=== PATIENT | female | born 1955 | race Caucasian/White ===

== ENCOUNTER 2017-08-26 14:11 | Outpatient (CLI) | payer OTHER | END 2017-08-26 14:12 | disposition home or self-care (01) | LOC: BICRAD 14:11 | PROVIDERS: ATTEND Internal Medicine Rheumatology | DX: M17.0 Bilateral primary osteoarthritis of knee (principal) ==

== ENCOUNTER 2017-09-03 13:25 | Outpatient (CLI) | payer OTHER ==
--- NOTE | 2017-09-03 14:10 | ULT ---
ULTRASOUND WITH DOPPLER DUPLEX VENOUS LOWER EXTREMITY BILATERAL CPT: 63277 ICD-10-PCS: B54D HISTORY: Bilateral lower extremity edema. TECHNIQUE: Color flow Doppler, spectral waveform analysis of pulsed Doppler, and pina-scale imaging with vicente bibi and augmentation, were used to evaluate the bilateral common femoral, femoral, popliteal, core cleaner ior tibial, and superficial femoral, veins; and the proximal portions of the profunda femoral and gre ater saphenous, veins. FINDINGS: Appropriate compressibility and flow within the imaged deep vein system of each lower extremity. IMPRESSION: No deep vein thrombosis of the visualized bilateral lower extremities. POS: [facility]
== END 2017-09-03 13:26 | disposition home or self-care (01) ==
LOC: ULT 13:25
PROVIDERS: ATTEND Family Medicine
DX: M79.89 Other specified soft tissue disorders (principal)
CPT/HCPCS: 93970

== ENCOUNTER 2017-09-13 10:45 | Outpatient (CLI) | payer OTHER | END 2017-09-13 10:46 | disposition home or self-care (01) | LOC: DTY/OP 10:45 | PROVIDERS: ATTEND Surgery | DX: E78.5 Hyperlipidemia, unspecified (principal); G47.30 Sleep apnea, unspecified; I10 Essential (primary) hypertension | CPT/HCPCS: 97802 ==

== ENCOUNTER 2017-10-11 11:15 | Inpatient (IN) | payer OTHER ==
[2017-10-21] MEDS ORDERED: Heparin 5,000 UNITS/ML VIAL ONE (08:11)
[2017-10-21] MEDS ORDERED: CEFAZOLIN/Water 2 GM/20 ML SYRINGE ONE (08:11)
[2017-10-21] MEDS ORDERED: Bupivacaine/Epinephrine 0.25% 30 ML VIAL ONE (09:53)
--- NOTE | 2017-10-21 10:14 | RAD ---
PA AND LATERAL CHEST: HISTORY: A 62-year-old female for preoperative evaluation. FINDINGS: Heart size is normal. Lungs are clear. No confluent pneumonia, overt edema, or pleural effusion. IMPRESSION: No acute intrathoracic disease. Minimal atherosclerosis of the aorta. POS: [facility]
[2017-10-21] MEDS ORDERED: Midazolam HCl 2 mg/2 ml Vial ONE ×2 (10:19→11:08)
[2017-10-21] MEDS ORDERED: Fentanyl 100 MCG/2 ML VIAL ONE (10:19)
[2017-10-21] MEDS ORDERED: HYDROmorphone 0.5 MG/0.5 ML SYRINGE ONE (10:20)
[2017-10-21] MEDS ORDERED: Lidocaine 1% (PF) 30 ML VIAL ONE (10:21)
[2017-10-21] MEDS ORDERED: Promethazine HCl 25 MG/ML VIAL SLOW IVP PRN (10:25)
[2017-10-21] MEDS ORDERED: diphenhydrAMINE 50 MG/ML VIAL IVP PRN ×2 (10:25→12:41)
[2017-10-21] MEDS ORDERED: HYDROmorphone 10 mg/100 ml CADD IVPB PRN (10:25)
[2017-10-21] MEDS ORDERED: diphenhydrAMINE 50 MG/ML VIAL IM PRN (10:25)
[2017-10-21] MEDS ORDERED: Zolpidem Tartrate 5 MG TAB PO PRN (10:25)
[2017-10-21] MEDS ORDERED: Naloxone HCl 0.4 mg/ml Vial IV PRN (10:25)
[2017-10-21] MEDS ORDERED: diphenhydrAMINE 25 MG CAP PO PRN (10:25)
[2017-10-21] MEDS ORDERED: Promethazine HCl 25 MG/ML VIAL IM PRN ×3 (10:25→12:41)
[2017-10-21] MEDS ORDERED: Meperidine HCl/PF 25 MG/ML VIAL SLOW IVP PRN (10:25)
[2017-10-21] MEDS ORDERED: Ondansetron HCl/PF 4 MG/2 ML Vial IVP PRN ×3 (10:25→12:41)
[2017-10-21] MEDS ORDERED: HYDROmorphone 2 MG/ML VIAL SLOW IVP PRN (10:25)
[2017-10-21] MEDS ORDERED: Communication Order-Pharmacy FS SCH (10:30)
[2017-10-21] MEDS ORDERED: Levofloxacin 500 mg/D5W 100 ml Premix Bag ONE (11:22)
[2017-10-21] MEDS ORDERED: hydrALAZINE 20 MG/ML VIAL SLOW IVP PRN (12:41)
[2017-10-21] MEDS ORDERED: Hydrocodone-Acetamin 15 ML UDCUP PO PRN (12:41)
[2017-10-21] MEDS ORDERED: Dextrose 50% Abboject 50 ML SYRINGE SLOW IVP PRN (12:41)
[2017-10-21] MEDS ORDERED: Dextrose 5% in Water 1,000 ML IV PRN (12:41)
--- NOTE | 2017-10-21 12:53 | OP ---
DATE OF PROCEDURE: 10/21/2017 PREOPERATIVE DIAGNOSIS: Morbid obesity. SURGEON: Chase Carmichael M.D. PROCEDURES PERFORMED: Laparoscopic sleeve gastrectomy and esophagogastroscopy. INDICATIONS: A 62-year-old female, morbidly obese, who has attempted multiple weight loss programs w [facility] success. FINDINGS: A 38 Kazakh bougie used. PROCEDURE IN DETAIL: After informed consent was obtained, the patient was taken to the operating jose m and given general endotracheal anesthesia and placed in the supine position. The abdomen was prepp ed and draped in usual fashion. Local anesthesia infiltrated subcutaneously and deep. A 12 mm incis ion was performed about 8 inches down below the xiphoid slightly to the left. Veress needle inserted . Drop test performed. Pneumoperitoneum was created to a volume of 2 liters of carbon dioxide. Uti lizing a bladeless 12 mm trocar and 0-degree laparoscope, direct visual entry in the abdominal cavity was performed. Pneumoperitoneum was then created to a pressure of 15 mmHg and the patient placed in steep reverse Trendelenburg position. Jose Juanen liver retractor inserted. Left lobe of liver retra cted superiorly. Pylorus identified and a 12 mm port placed on the right beneath it, two 12s placed left subcostal. The omentum was taken off the greater curvature 5 cm from the pylorus utilizing the LigaSure. Short gastrics divided with LigaSure and left crura defined with the LigaSure. A 38-Frenc h bougie inserted directed into the antrum. The linear 60 mm green load stapler used to divide the a ntrum to the bougie, gold load along the bougie, and a series of blues through the angle of His. Int raoperative endoscopy was performed. The video endoscope inserted under direct vision and advanced i nto the sleeve. Staple line inspected. There was no bleeding. Staple line then tested by inflating the stomach with pressurized air under water. There was no air leak. Stomach decompressed. Scope removed. The remnant stomach removed from the abdomen through the left lateral port site. Fascia cl osed with interrupted 0 Vicryl suture. The skin closed with interrupted 4-0 Rapide. Dermabond appli ed. The patient tolerated the procedure well and transferred to recovery in good condition. Sponge and needle count verified correct x2.
[2017-10-21] MEDS ORDERED: Ondansetron HCl/PF 4 MG/2 ML Vial ONE (15:12)
[2017-10-21] MEDS ORDERED: Dexamethasone 20 MG/5 ML VIAL ONE (15:12)
[2017-10-21] MEDS ORDERED: Ketorolac Tromethamine 30 MG/ML VIAL ONE (15:12)
[2017-10-21] MEDS ORDERED: Lidocaine 1% PF 5 ML VIAL ONE (15:12)
[2017-10-21] MEDS ORDERED: PROPOFOL 200 MG/20 ML VIAL ONE (15:12)
[2017-10-21] MEDS ORDERED: Glycopyrrolate 0.2 MG/ML 5 ML SYRINGE ONE (15:12)
[2017-10-21] MEDS ORDERED: PHENYLEPHRINE-NS 100 MCG/ML 10 ML SYRINGE ONE (15:12)
[2017-10-21] MEDS: Acetaminophen 1,000 MG in Premix Bag 1 BAG IVPB SCH ×3 (15:17→23:03)
[2017-10-21] MEDS: Ketorolac Tromethamine 30 MG/ML VIAL IVP SCH ×3 (15:18→23:03)
[2017-10-21] MEDS: D5 1/2 NS w/20 mEq KCL 1,000 ML IV SCH ×2 (15:20→22:42)
[2017-10-21 16:47] VITALS: BMI 50.5
[2017-10-22] MEDS: Acetaminophen 1,000 MG in Premix Bag 1 BAG IVPB SCH ×2 (05:24→13:19)
[2017-10-22] MEDS: Ketorolac Tromethamine 30 MG/ML VIAL IVP SCH ×2 (05:24→12:26)
[2017-10-22] MEDS: D5 1/2 NS w/20 mEq KCL 1,000 ML IV SCH (05:26)
[2017-10-22 07:34] LABS: #Lymphocytes 1.3 thou/uL (1.20-3.40); #Monocytes 0.9 thou/uL (0.11-0.59); #Neutrophils 10.2 thou/uL (1.40-6.50); %Basophils 0.1 % (0.0-1.0); %Eosinophils 0.1 % (0.0-10.0); %Lymphocytes 10.2 % (21.0-51.0); %Monocytes 7.1 % (0.0-10.0); %Neutrophils 82.5 % (42.0-75.0); Hemoglobin 13.2 g/dL (12.0-16.0); Mean Corpuscular HGB CONC 32.3 g/dL (32.0-36.0); Mean Corpuscular Hemoglobin 28.5 pg (27.0-31.0); Mean Platelet Volume 7.5 fL (7.4-10.4); Platelet Count 294 thou/uL (130-400); RBC Distribution Width 13.2 % (11.5-14.5); Red Blood Cell (RBC) Count 4.65 mill/uL (4.20-5.40); White Blood Cell (WBC) Count 12.3 thou/uL (4.8-10.8)
[2017-10-22 07:45] LABS: Anion Gap 14 mmol/L (10-20); BUN (Urea Nitrogen) 7 mg/dL (9.8-20.1); Calc. Creatinine Clearance 170 mL/min (70-130); Calcium 10.2 mg/dL (7.8-10.44); Carbon Dioxide 28 mmol/L (23-31); Chloride 108 mmol/L (98-107); Estimated GFR-MDRD 76; Glucose 129 mg/dL (80-115); Potassium 4.6 mmol/L (3.5-5.1); Sodium 145 mmol/L (136-145)
[2017-10-22] MEDS ORDERED: Enoxaparin Sodium 40 MG/0.4 ML SYRINGE SC SCH (09:00)
[2017-10-22] MEDS ORDERED: Pantoprazole 40 MG VIAL IVP SCH (09:00)
--- NOTE | 2017-10-22 09:32 | RAD ---
LIMITED UPPER GI: INDICATION: Limited upper GI for postop followup of gastric surgery. A gastric sleeve procedure was performed. FINDINGS: 15 cc of Gastrografin was given orally. Contrast flowed through the sleeve portion of the stomach wi thout difficulty. No evidence of obstruction. No evidence of extravasation. IMPRESSION: Unremarkable post gastric sleeve exam. POS: [facility]
[2017-10-22] MEDS ORDERED: GASTROGRAFIN 30 ML BOT ONE (10:03)
[2017-10-22] MEDS ORDERED: Hydrocodone-Acetamin 15 ML UDCUP PO PRN (11:25)
[2017-10-22 12:46] VITALS: BP 145/73; TEMP 98.3
--- NOTE | 2017-10-22 14:26 | DIS ---
DISCHARGE DIAGNOSIS: Morbid obesity. PROCEDURES DURING ADMISSION: Laparoscopic sleeve gastrectomy, intraoperative esophagogastroscopy, po stoperative Gastrografin swallow. HOSPITAL COURSE: The patient was admitted and taken to the operating room and underwent sleeve gastr ectomy. Postoperatively, she has done well. X-ray was fine, started on liquids, tolerating well. S he is discharged home on hydrocodone and Zofran. She will follow up with me in 2 weeks.
== END 2017-10-22 13:04 | disposition home or self-care (01) | DRG 621 ==
LOC: SURG A 10-21 07:34 → SJJU 10-21 13:58
PROVIDERS: ADMIT Surgery; ATTEND Surgery
PROC: 0DB64Z3 Excision of Stomach, Percutaneous Endoscopic Approach, Vertical (ICD-10-PCS; principal; 2017-10-21)
DX: E66.01 Morbid (severe) obesity due to excess calories (principal); Z68.43 Body mass index [BMI] 50.0-59.9, adult
CPT/HCPCS: 36415; 71046; 74241; 80048; 85025; 94760; C9113; J0131; J1100; J1170; J1200; J1644; J1650; J1885; J1956; J2001; J2250; J2405; J2704; J3010

== ENCOUNTER 2017-10-11 11:22 | Outpatient (CLI) | payer OTHER ==
[2017-10-11 12:12] LABS: #Basophils 0.1 thou/uL (0.0-0.2); #Eosinphils 0.3 thou/uL (0.0-0.7); #Lymphocytes 2.1 thou/uL (1.20-3.40); #Monocytes 0.7 thou/uL (0.11-0.59); #Neutrophils 5.7 thou/uL (1.40-6.50); %Basophils 0.9 % (0.0-1.0); %Eosinophils 3.2 % (0.0-10.0); %Lymphocytes 23.9 % (21.0-51.0); %Neutrophils 63.9 % (42.0-75.0); Hemoglobin 14.4 g/dL (12.0-16.0); Mean Corpuscular HGB CONC 33.1 g/dL (32.0-36.0); Mean Corpuscular Hemoglobin 28.8 pg (27.0-31.0); Mean Corpuscular Volume 86.9 fl (81.0-99.0); Mean Platelet Volume 7.8 fL (7.4-10.4); Platelet Count 313 thou/uL (130-400); RBC Distribution Width 13.4 % (11.5-14.5); Red Blood Cell (RBC) Count 5.02 mill/uL (4.20-5.40); White Blood Cell (WBC) Count 8.8 thou/uL (4.8-10.8)
[2017-10-11 12:20] LABS: Hemoglobin A1c 5.6 % (4.0-6.0)
[2017-10-11 12:37] LABS: ALT (SGPT) 28 U/L (8-55); AST (SGOT) 26 U/L (5-34); Albumin 4.5 g/dL (3.4-4.8); Alkaline Phosphatase 136 U/L (40-150); Anion Gap 14 mmol/L (10-20); BUN (Urea Nitrogen) 11 mg/dL (9.8-20.1); Bilirubin, Direct 0.2 mg/dL (0.1-0.3); Bilirubin, Total 0.5 mg/dL (0.2-1.2); Calc. Creatinine Clearance 0 mL/min (70-130); Carbon Dioxide 27 mmol/L (23-31); Chloride 103 mmol/L (98-107); Estimated GFR-MDRD 74; Globulin 3.4 g/dL (2.4-3.5); Glucose 113 mg/dL (80-115); Potassium 3.5 mmol/L (3.5-5.1); Protein, Total 7.9 g/dL (6.0-8.3); Sodium 140 mmol/L (136-145)
== END 2017-10-11 11:23 | disposition home or self-care (01) ==
LOC: LABBT 11:22
PROVIDERS: ATTEND Surgery
DX: Z01.818 Encounter for other preprocedural examination (principal); E66.01 Morbid (severe) obesity due to excess calories
CPT/HCPCS: 80053; 80076; 83036; 85025; 93005; 93010

== ENCOUNTER 2017-10-29 10:57 | Emergency (ER) | payer OTHER ==
[2017-10-29 12:33] LABS: #Basophils 0.2 thou/uL (0.0-0.2); #Eosinphils 0.3 thou/uL (0.0-0.7); #Lymphocytes 1.9 thou/uL (1.20-3.40); #Monocytes 0.7 thou/uL (0.11-0.59); #Neutrophils 6.1 thou/uL (1.40-6.50); %Basophils 1.7 % (0.0-1.0); %Eosinophils 3.3 % (0.0-10.0); %Lymphocytes 20.4 % (21.0-51.0); %Monocytes 7.8 % (0.0-10.0); %Neutrophils 66.8 % (42.0-75.0); Hemoglobin 14.3 g/dL (12.0-16.0); Mean Corpuscular HGB CONC 34.8 g/dL (32.0-36.0); Mean Corpuscular Hemoglobin 28.3 pg (27.0-31.0); Mean Corpuscular Volume 81.5 fL (78.0-98.0); Mean Platelet Volume 8.8 fL (7.4-10.4); Platelet Count 328 thou/uL (130-400); RBC Distribution Width 12.3 % (11.5-14.5); Red Blood Cell (RBC) Count 5.06 mill/uL (4.20-5.40); White Blood Cell (WBC) Count 9.1 thou/uL (4.8-10.8)
[2017-10-29 12:42] LABS: ALT (SGPT) 16 U/L (8-55); AST (SGOT) 16 U/L (5-34); Alkaline Phosphatase 114 U/L (40-150); Anion Gap 15 mmol/L (10-20); BUN (Urea Nitrogen) 8 mg/dL (9.8-20.1); Bilirubin, Total 0.8 mg/dL (0.2-1.2); Calc. Creatinine Clearance 0 mL/min (70-130); Calcium 10.2 mg/dL (7.8-10.44); Carbon Dioxide 25 mmol/L (23-31); Chloride 106 mmol/L (98-107); Estimated GFR-MDRD 77; Globulin 3.1 g/dL (2.4-3.5); Glucose 108 mg/dL (80-115); Magnesium 2.3 mg/dL (1.6-2.6); Potassium 3.5 mmol/L (3.5-5.1); Protein, Total 7.1 g/dL (6.0-8.3); Sodium 142 mmol/L (136-145)
== END 2017-10-29 15:41 | disposition home or self-care (01) ==
LOC: SCSER 10:57
DX: E89.89 Other postprocedural endocrine and metabolic complications and disorders (principal); E86.0 Dehydration; E78.5 Hyperlipidemia, unspecified; I10 Essential (primary) hypertension
CPT/HCPCS: 80053; 83735; 85025; 96360; 96361

== ENCOUNTER 2018-02-18 12:10 | Outpatient (CLI) | payer OTHER ==
--- NOTE | 2018-02-18 18:01 | ULT ---
SOFT TISSUE NECK ULTRASOUND THYROID ULTRASOUND: 02/18/18 HISTORY: Palpable right neck mass. TECHNIQUE: Multiplanar pina scale and color doppler images were obtained in a neck and thyroid ultrasound. FINDINGS: There are numerous anechoic lesions in the thyroid which likely represents cysts. The largest measure s 8 mm in size in the lower pole of the right lobe. The right and left lobes of the thyroid measure 4 .2 and 4.4 cm in length on the right and left, respectively. The area of palpable abnormality in the right neck, there is a normal appearing lymph node measuring 1.2 cm in greatest dimension. IMPRESSION: 1. The palpable abnormality represents a lymph node. 2. Multicystic thyroid. POS: [facility]
== END 2018-02-18 12:11 | disposition home or self-care (01) ==
LOC: BICULT 12:10
PROVIDERS: ATTEND Family Medicine
DX: E04.2 Nontoxic multinodular goiter (principal)
CPT/HCPCS: 76536

== ENCOUNTER 2018-04-01 07:28 | Outpatient (CLI) | payer OTHER ==
--- NOTE | 2018-04-01 08:32 | ULT ---
SONOGRAM RIGHT UPPER QUADRANT: Date: 04/01/18 HISTORY: Right upper quadrant pain. FINDINGS: Echogenic sludge and shadowing stones are present within the gallbladder lumen. There is no gallbladd er wall thickening or pericholecystic fluid. Common duct is 0.6 cm. Liver unremarkable without focal mass or intrahepatic biliary dilatation. No free fluid. IMPRESSION: Cholelithiasis. No evidence of acute biliary obstruction. POS: [facility]
== END 2018-04-01 07:29 | disposition home or self-care (01) ==
LOC: BICULT 07:28
PROVIDERS: ATTEND Surgery
DX: R10.13 Epigastric pain (principal); R11.2 Nausea with vomiting, unspecified; K80.20 Calculus of gallbladder without cholecystitis without obstruction
CPT/HCPCS: 76705

== ENCOUNTER 2018-04-05 11:10 | Inpatient (IN) | payer OTHER ==
[2018-04-05] MEDS ORDERED: Morphine 4 MG/ML VIAL SLOW IVP PRN (12:11)
[2018-04-05] MEDS ORDERED: Promethazine HCl 25 MG/ML VIAL SLOW IVP PRN (12:12)
[2018-04-05] MEDS: D5 1/2 NS w/20 mEq KCL 1,000 ML IV SCH ×2 (12:29→21:26)
[2018-04-05] MEDS: Morphine 4 MG/ML VIAL SLOW IVP PRN ×2 (12:30→18:21)
[2018-04-05] MEDS: Ondansetron PF 4 MG/2 ML Vial SLOW IVP PRN (12:32)
[2018-04-05 12:43] LABS: #Basophils 0.1 thou/uL (0.0-0.2); #Eosinphils 0.1 thou/uL (0.0-0.7); #Lymphocytes 1.3 thou/uL (1.20-3.40); #Monocytes 0.4 thou/uL (0.11-0.59); #Neutrophils 7.5 thou/uL (1.40-6.50); %Basophils 0.7 % (0.0-1.0); %Eosinophils 0.8 % (0.0-10.0); %Lymphocytes 13.9 % (21.0-51.0); %Monocytes 4.4 % (0.0-10.0); %Neutrophils 80.2 % (42.0-75.0); Hemoglobin 16.2 g/dL (12.0-16.0); Mean Corpuscular HGB CONC 32.4 g/dL (32.0-36.0); Mean Corpuscular Hemoglobin 28.8 pg (27.0-31.0); Mean Corpuscular Volume 88.9 fL (78.0-98.0); Mean Platelet Volume 8.7 fL (7.4-10.4); Platelet Count 275 thou/uL (130-400); RBC Distribution Width 13.3 % (11.5-14.5); Red Blood Cell (RBC) Count 5.63 mill/uL (4.20-5.40); White Blood Cell (WBC) Count 9.3 thou/uL (4.8-10.8)
[2018-04-05 13:28] VITALS: BMI 36.1
[2018-04-05 14:40] LABS: Albumin 3.9 g/dL (3.4-4.8)
[2018-04-05 14:41] LABS: Chloride 101 mmol/L (98-107); Potassium 3.5 mmol/L (3.5-5.1); Sodium 138 mmol/L (136-145)
[2018-04-05 14:42] LABS: Calcium 10.5 mg/dL (7.8-10.44); Globulin 3.3 g/dL (2.4-3.5); Glucose 106 mg/dL (80-115); Protein, Total 7.2 g/dL (6.0-8.3)
[2018-04-05 14:44] LABS: Anion Gap 14 mmol/L (10-20); Bilirubin, Total 0.9 mg/dL (0.2-1.2); Carbon Dioxide 27 mmol/L (23-31)
[2018-04-05 14:45] LABS: Alkaline Phosphatase 91 U/L (40-150); Calc. Creatinine Clearance 127 mL/min (70-130); Estimated GFR-MDRD 81
[2018-04-05 14:46] LABS: BUN (Urea Nitrogen) 4 mg/dL (9.8-20.1)
[2018-04-05 14:47] LABS: AST (SGOT) 13 U/L (5-34); Bilirubin, Direct 0.3 mg/dL (0.1-0.3)
[2018-04-05 14:48] LABS: ALT (SGPT) Less than 7 U/L (8-55)
[2018-04-05] MEDS: Clindamycin/D5W 600 MG in Premix Bag 1 BAG IVPB SCH ×2 (16:20→21:26)
[2018-04-06] MEDS: Morphine 4 MG/ML VIAL SLOW IVP PRN (00:38)
[2018-04-06] MEDS: Ondansetron PF 4 MG/2 ML Vial SLOW IVP PRN (00:38)
[2018-04-06] MEDS: D5 1/2 NS w/20 mEq KCL 1,000 ML IV SCH ×4 (03:37→21:24)
[2018-04-06] MEDS: Clindamycin/D5W 600 MG in Premix Bag 1 BAG IVPB SCH ×3 (05:36→21:35)
[2018-04-06] MEDS ORDERED: Fentanyl 100 MCG/2 ML VIAL ONE ×2 (08:24→09:50)
[2018-04-06] MEDS ORDERED: Bupivacaine/Epinephrine 0.25% 30 ML VIAL ONE (08:52)
[2018-04-06] MEDS ORDERED: Morphine 4 MG/ML VIAL SLOW IVP PRN (09:43)
[2018-04-06] MEDS ORDERED: hydrALAZINE 20 MG/ML VIAL SLOW IVP PRN (09:43)
[2018-04-06] MEDS ORDERED: Dextrose 5% in Water 1,000 ML IV PRN (09:43)
[2018-04-06] MEDS ORDERED: HYDROcodone/Acetaminophen 10/325 mg Tablet PO PRN (09:43)
[2018-04-06] MEDS ORDERED: Mag-Al 1200 mg/1200 mg/30 ML UDCUP PO PRN (09:43)
[2018-04-06] MEDS ORDERED: Dextrose 50% Abboject 50 ML SYRINGE SLOW IVP PRN (09:43)
[2018-04-06] MEDS ORDERED: Promethazine HCl 25 MG/ML VIAL IM PRN ×2 (09:43→09:54)
[2018-04-06] MEDS ORDERED: Ondansetron PF 4 MG/2 ML Vial IVP PRN (09:43)
[2018-04-06] MEDS ORDERED: Morphine 2 MG/ML SYRINGE SLOW IVP PRN (09:43)
[2018-04-06] MEDS ORDERED: Calcium Carbonate 500 MG ChewTAB PO PRN (09:43)
[2018-04-06] MEDS ORDERED: Multivit, Adult Inj 10 ML VIAL IV SCH (09:45)
[2018-04-06] MEDS ORDERED: HYDROmorphone 2 MG/ML VIAL SLOW IVP PRN (09:54)
[2018-04-06] MEDS ORDERED: Ondansetron HCl/PF 4 MG/2 ML Vial IVP PRN (09:54)
[2018-04-06] MEDS ORDERED: Meperidine HCl/PF 25 MG/ML VIAL SLOW IVP PRN (09:54)
[2018-04-06] MEDS ORDERED: Promethazine HCl 25 MG/ML VIAL SLOW IVP PRN (09:54)
--- NOTE | 2018-04-06 13:33 | OP ---
DATE OF PROCEDURE: 04/06/2018 PREOPERATIVE DIAGNOSIS: Acute cholecystitis. PROCEDURE PERFORMED: Laparoscopic cholecystectomy. INDICATIONS: A 63-year-old female, who has been having severe epigastric pain after eating, associated with nausea and vomiting, radiating to the back. Ultrasound showed cholelithiasis. FINDINGS: She had a very small cystic duct and distended gallbladder. DESCRIPTION OF PROCEDURE: After informed consent was obtained, the patient was taken to the operating room and given general endotracheal anesthesia, placed in the supine position. Abdomen was prepped and draped in the usual fashion. Local anesthesia infiltrated subcutaneously and deep. A subumbilical incision was performed with subcu device sharply. The fascia was grasped. Two stay sutures of 0 Vicryl were placed each side of midline. Midline was incised. Digital palpation revealed no local adhesions. A blunt 10/12 mm trocar inserted. Pneumoperitoneum was created to a pressure of 15 mmHg. A 0-degree laparoscope was inserted under direct vision. Three 5-mm ports were placed subcostally. The gallbladder was grasped and advanced superiorly. Peritoneum lysed distally to dissect out the cystic duct artery in critical view. These were triply ligated and divided. The gallbladder removed from its fossa utilizing electrocautery, removed from the abdomen in an Endosac through the umbilical port. Hemostasis assured. The abdomen was irrigated. Irrigation fluid removed. Trocars and retractors removed. The fascia was closed with interrupted 0 Vicryl suture. The skin was closed with interrupted 4-0 Rapide. Dermabond applied. The patient tolerated the procedure well, transferred to Recovery in good condition. Sponge and needle count verified correct x2. Job ID: [id number]
[2018-04-06] MEDS ORDERED: Multivitamins, Adult 10 ML in Sodium Chloride 0.9% 500 ML IV SCH (14:15)
[2018-04-06] MEDS: Ketorolac Tromethamine 30 MG/ML VIAL IVP SCH ×3 (15:56→23:25)
[2018-04-06] MEDS: HYDROcodone/Acetaminophen 10/325 mg Tablet PO PRN ×2 (16:01→21:34)
[2018-04-06] MEDS ORDERED: Succinylcholine Chloride 20 MG/ML 10 ml SYRINGE FS ONE (18:16)
[2018-04-06] MEDS ORDERED: ePHEDrine/0.9% NaCl/PF SYRINGE 50 mg/10 ml ONE (18:16)
[2018-04-06] MEDS ORDERED: Lidocaine 1% PF 5 ML VIAL ONE (18:16)
[2018-04-06] MEDS ORDERED: Dexamethasone 20 MG/5 ML VIAL ONE (18:16)
[2018-04-06] MEDS ORDERED: Metoclopramide HCl 10 MG/2 ML VIAL ONE (18:16)
[2018-04-06] MEDS ORDERED: PROPOFOL 200 MG/20 ML VIAL ONE (18:16)
[2018-04-06] MEDS: Famotidine 20 MG TAB PO SCH (21:26)
[2018-04-06] MEDS: Famotidine/PF 20 mg/2ml Vial SLOW IVP SCH (21:26)
[2018-04-07] MEDS: D5 1/2 NS w/20 mEq KCL 1,000 ML IV SCH (01:37)
[2018-04-07] MEDS ORDERED: Enoxaparin Sodium 40 MG/0.4 ML SYRINGE SC SCH ×2 (06:00→06:15)
[2018-04-07] MEDS: Ketorolac Tromethamine 30 MG/ML VIAL IVP SCH (06:13)
[2018-04-07] MEDS: Clindamycin/D5W 600 MG in Premix Bag 1 BAG IVPB SCH (06:14)
[2018-04-07 06:51] LABS: #Lymphocytes 1.2 thou/uL (1.20-3.40); #Monocytes 0.8 thou/uL (0.11-0.59); #Neutrophils 8.5 thou/uL (1.40-6.50); %Basophils 0.2 % (0.0-1.0); %Eosinophils 0.1 % (0.0-10.0); %Lymphocytes 11.2 % (21.0-51.0); %Monocytes 7.3 % (0.0-10.0); %Neutrophils 81.2 % (42.0-75.0); Hemoglobin 13.6 g/dL (12.0-16.0); Mean Corpuscular HGB CONC 33.2 g/dL (32.0-36.0); Mean Corpuscular Hemoglobin 29.6 pg (27.0-31.0); Mean Corpuscular Volume 89.2 fL (78.0-98.0); Mean Platelet Volume 8.3 fL (7.4-10.4); Platelet Count 278 thou/uL (130-400); RBC Distribution Width 13.3 % (11.5-14.5); Red Blood Cell (RBC) Count 4.58 mill/uL (4.20-5.40); White Blood Cell (WBC) Count 10.5 thou/uL (4.8-10.8)
[2018-04-07 07:08] LABS: ALT (SGPT) 11 U/L (8-55); AST (SGOT) 27 U/L (5-34); Albumin 3.5 g/dL (3.4-4.8); Alkaline Phosphatase 79 U/L (40-150); Anion Gap 13 mmol/L (10-20); BUN (Urea Nitrogen) 5 mg/dL (9.8-20.1); Bilirubin, Total 0.6 mg/dL (0.2-1.2); Calc. Creatinine Clearance 123 mL/min (70-130); Calcium 10.6 mg/dL (7.8-10.44); Carbon Dioxide 26 mmol/L (23-31); Chloride 102 mmol/L (98-107); Estimated GFR-MDRD 78; Globulin 2.9 g/dL (2.4-3.5); Glucose 121 mg/dL (80-115); Lipase Less than 4 U/L (8-78); Potassium 3.7 mmol/L (3.5-5.1); Protein, Total 6.4 g/dL (6.0-8.3); Sodium 137 mmol/L (136-145)
[2018-04-07 08:00] VITALS: BP 127/74; TEMP 97.5
[2018-04-07] MEDS: Famotidine 20 MG TAB PO SCH (08:33)
[2018-04-07] MEDS: Famotidine/PF 20 mg/2ml Vial SLOW IVP SCH (08:33)
[2018-04-07] MEDS ORDERED: Labetalol HCl 100 MG/20 ML VIAL SLOW IVP PRN (08:47)
--- NOTE | 2018-04-07 11:24 | DIS ---
DATE OF ADMISSION: 04/05/2018 DATE OF DISCHARGE: 04/07/2018 DISCHARGE DIAGNOSIS: Severe biliary colic with cholecystitis. PROCEDURES DURING ADMISSION: Laparoscopic cholecystectomy. HOSPITAL COURSE: The patient was admitted, given IV fluids, IV antibiotics, taken to the operating room where she underwent a laparoscopic cholecystectomy. Postoperatively, she is doing much better, she is tolerating diet, her pain is much better, she is afebrile. She is discharged to home on hydrocodone and Zofran. She will follow up with me in two weeks. Job ID: [id number]
[2018-04-08] MEDS ORDERED: Enoxaparin Sodium 40 MG/0.4 ML SYRINGE SC SCH (09:00)
== END 2018-04-07 10:40 | disposition home or self-care (01) | DRG 419 ==
LOC: T4-A 11:10 → SJJU 11:15
PROVIDERS: ADMIT Surgery; ATTEND Surgery
PROC: 0FT44ZZ Resection of Gallbladder, Percutaneous Endoscopic Approach (ICD-10-PCS; principal; 2018-04-06)
DX: K80.00 Calculus of gallbladder with acute cholecystitis without obstruction (principal); I10 Essential (primary) hypertension; Z88.0 Allergy status to penicillin; Z88.2 Allergy status to sulfonamides; Z88.8 Allergy status to other drugs, medicaments and biological substances; Z79.899 Other long term (current) drug therapy
CPT/HCPCS: 36415; 80053; 80076; 82150; 83690; 84425; 85025; 88304; 93005; 93010; J1100; J1650; J1885; J1956; J2001; J2270; J2405; J2704; J2765; J3010; J3411; J3490; J7050

== ENCOUNTER 2018-04-18 16:03 | Emergency (ER) | payer OTHER ==
[2018-04-18 16:43] LABS: #Basophils 0.1 thou/uL (0.0-0.2); #Eosinphils 0.2 thou/uL (0.0-0.7); #Lymphocytes 2.1 thou/uL (1.20-3.40); #Monocytes 0.5 thou/uL (0.11-0.59); #Neutrophils 6.2 thou/uL (1.40-6.50); %Basophils 0.8 % (0.0-1.0); %Eosinophils 2.6 % (0.0-10.0); %Lymphocytes 23.1 % (21.0-51.0); %Monocytes 5.4 % (0.0-10.0); %Neutrophils 68.1 % (42.0-75.0); Hemoglobin 15.5 g/dL (12.0-16.0); Mean Corpuscular HGB CONC 33.6 g/dL (32.0-36.0); Mean Corpuscular Hemoglobin 29.9 pg (27.0-31.0); Mean Corpuscular Volume 89.1 fL (78.0-98.0); Mean Platelet Volume 8.5 fL (7.4-10.4); Platelet Count 304 thou/uL (130-400); RBC Distribution Width 13.4 % (11.5-14.5); Red Blood Cell (RBC) Count 5.18 mill/uL (4.20-5.40); White Blood Cell (WBC) Count 9.1 thou/uL (4.8-10.8)
[2018-04-18] MEDS ORDERED: Ondansetron PF 4 MG/2 ML Vial ONE (17:00)
[2018-04-18 17:07] LABS: ALT (SGPT) 9 U/L (8-55); AST (SGOT) 16 U/L (5-34); Albumin 4.1 g/dL (3.4-4.8); Alkaline Phosphatase 98 U/L (40-150); Anion Gap 15 mmol/L (10-20); BUN (Urea Nitrogen) 5 mg/dL (9.8-20.1); Bilirubin, Total 0.7 mg/dL (0.2-1.2); CK (CPK) 19 U/L (29-168); Calc. Creatinine Clearance 0 mL/min (70-130); Calcium 10.8 mg/dL (7.8-10.44); Carbon Dioxide 27 mmol/L (23-31); Chloride 100 mmol/L (98-107); Estimated GFR-MDRD 68; Globulin 3.6 g/dL (2.4-3.5); Glucose 102 mg/dL (80-115); Potassium 3.3 mmol/L (3.5-5.1); Protein, Total 7.7 g/dL (6.0-8.3); Sodium 139 mmol/L (136-145)
[2018-04-18 17:21] LABS: Bilirubin Moderate (Negative); Blood, Urine Negative (Negative); Clarity CLEAR (Clear); Glucose, Urine (Dipstick) Negative (Negative); Leukocyte Small (Negative); Nitrite Negative (Negative); Protein, Urine (Dipstick) Trace mg/dL (Neg-Trace); Specific Gravity, Urine 1.018 (1.002-1.036); pH, Urine 7.5 (5.0-9.0)
[2018-04-18 17:23] LABS: Bacteria/HPF Rare-Few HPF (None Seen); Hyaline Casts/LPF 4-6 HYALINE CAST LPF (0-3 Hyaline); Pathc Cast-AUWi Flag 1.45 (0-2.49); WBC/HPF 0-3 HPF (0-3)
[2018-04-18 17:25] LABS: RBC/HPF None Seen HPF (0-3)
== END 2018-04-18 18:47 | disposition home or self-care (01) ==
LOC: ERS 16:03
DX: R53.1 Weakness (principal); R11.0 Nausea; I10 Essential (primary) hypertension; E78.5 Hyperlipidemia, unspecified; F41.9 Anxiety disorder, unspecified; Z79.899 Other long term (current) drug therapy
CPT/HCPCS: 80053; 81003; 81015; 82550; 83690; 84484; 85025; 93005; 96361; 96374; J2405

== ENCOUNTER 2018-12-08 09:04 | Outpatient (CLI) | payer OTHER ==
--- NOTE | 2018-12-13 06:44 | MMO ---
Bilateral MAMMO Bilat Screen [facility]. CLINICAL HISTORY: Patient is 63 years old and is seen for screening. The patient has no family history of breast cancer. The patient has no personal history of cancer. VIEWS: The views performed were: bilateral craniocaudal with tomosynthesis and bilateral mediolateral oblique with tomosynthesis. FILMS COMPARED: The present examination has been compared to a prior imaging study performed at [facility] on 11/26/2015. MAMMOGRAM FINDINGS: There are scattered fibroglandular densities. There are benign appearing calcifications seen in both breasts. There are no suspicious masses, suspicious calcifications, or new areas of architectural distortion. IMPRESSION: THERE IS NO MAMMOGRAPHIC EVIDENCE OF MALIGNANCY. A ROUTINE FOLLOW-UP MAMMOGRAM IN 1 YEAR IS RECOMMENDED. THE RESULTS OF THIS EXAM WERE SENT TO THE PATIENT. ACR BI-RADS Category 2 - Benign finding MAMMOGRAPHY NOTE: 1. A negative mammogram report should not delay a biopsy if a dominant of clinically suspicious mass is present. 2. Approximately 10% to 15% of breast cancers are not detected by mammography. 3. Adenosis and dense breasts may obscure an underlying neoplasm. Reported by: TIARA MAY MD Electonically Signed: [id number]
== END 2018-12-08 09:05 | disposition home or self-care (01) ==
LOC: BICMAMMO 09:04
PROVIDERS: ATTEND Family Medicine
DX: Z12.31 Encounter for screening mammogram for malignant neoplasm of breast (principal)
CPT/HCPCS: 77063; 77067

== ENCOUNTER 2020-04-29 14:01 | Outpatient (CLI) | payer MEDICARE, OTHER ==
--- NOTE | 2020-04-29 15:18 | ULT ---
Thyroid ultrasound: INDICATION: Hypercalcemia. COMPARISON: Comparison is made to thyroid ultrasound exam dated 02/18/2018. FINDINGS: Both lobes are homogeneous. The right lobe measures 4.0 x 1.4 x 2.1 cm. The left lobe measures 4.3 x 1.2 x 1.3 cm. Both lobes have similar size and appearance to the prior exam. On today's exam, there is a hypoechoic nodule in the inferior right lobe which measures approximately 1.4 x 0.9 x 0.5 cm. A hypoechoic nodule was seen to this same location on the prior exam and was described as probably cy stic. This nodule has a more solid appearance today with internal echogenicity, although it is hypoe choic and well circumscribed. IMPRESSION: Hypoechoic nodule inferior right lobe. This nodule is minimally larger and more solid appearing on t whitley's exam when compared to the prior study. Recommend continued followup with repeat thyroid ultra sound exam in 6 months to ensure stability. POS: [facility]
== END 2020-04-29 14:02 | disposition home or self-care (01) ==
LOC: BICULT 14:01
PROVIDERS: ATTEND Family Medicine
DX: E83.52 Hypercalcemia (principal); E04.1 Nontoxic single thyroid nodule
CPT/HCPCS: 76536

== ENCOUNTER 2020-06-04 08:51 | Outpatient (CLI) | payer MEDICARE ==
--- NOTE | 2020-06-04 12:09 | NM ---
Nuclear medicine parathyroid SPECT and scintigraphy: DATE: 06/04/2020 HISTORY: 65-year-old Female with hyperparathyroidism E21.3 TECHNIQUE: IV injection of 26.3 mCi Tc99m sestamibi. 3 view scintigraphic images of upper chest, neck, and head, immediately, at one hour, and 2 hours. SPECT in 3 planes from upper chest to skull base. Noncontrast CT from upper chest to skull base. SPECT-CT fusion. FINDINGS: There is an approximately 0.8 cm short axis diameter nodule which does not have intrinsic iodine on t he attenuation correction CT images abutting the inferior surface of the right lobe of the thyroid gland. On the SPECT-CT fusion images, this has markedly increased uptake. On the planar images, this manifests as a subtle small focal asymmetry of the inferior pole of the right lobe. This corresponds to the hypoechoic solid nodule found on ultrasound. Given the significantly elevated seru m PTH, this is a good candidate for parathyroid adenoma. IMPRESSION: Small nodule abutting the inferior pole of the right lobe of thyroid gland is a good candidate for pa rathyroid adenoma.
== END 2020-06-04 08:52 | disposition home or self-care (01) ==
LOC: NM 08:51
PROVIDERS: ATTEND Specialist
DX: E21.3 Hyperparathyroidism, unspecified (principal); E04.1 Nontoxic single thyroid nodule; D35.1 Benign neoplasm of parathyroid gland
CPT/HCPCS: 78072; A9500

== ENCOUNTER 2020-07-01 14:43 | Outpatient (CLI) | payer MEDICARE, OTHER ==
[2020-07-01 15:47] LABS: Hemoglobin 14.4 g/dL (12.0-15.5)
[2020-07-01 16:05] LABS: Anion Gap 9 mmol/L (10-20); BUN (Urea Nitrogen) 14 mg/dL (9.8-20.1); Calc. Creatinine Clearance 0 mL/min (70-130); Calcium 10.2 mg/dL (7.8-10.44); Carbon Dioxide 32 mmol/L (23-31); Chloride 106 mmol/L (98-107); Glucose 87 mg/dL (80-115); Potassium 4.4 mmol/L (3.5-5.1); Sodium 143 mmol/L (136-145)
[2020-07-02 02:30] LABS: SARS-CoV-2 PCR by NAA Not Detected (NotDetected)
== END 2020-07-01 14:44 | disposition home or self-care (01) ==
LOC: LABBT 14:43
PROVIDERS: ATTEND Specialist
DX: Z01.818 Encounter for other preprocedural examination (principal); Z20.822 Contact with and (suspected) exposure to COVID-19; E21.3 Hyperparathyroidism, unspecified; E04.1 Nontoxic single thyroid nodule; G44.209 Tension-type headache, unspecified, not intractable; E83.52 Hypercalcemia
CPT/HCPCS: 80048; 85014; 85018; 93005; U0003; U0005; 87635; 93010

== ENCOUNTER 2020-07-04 09:38 | Day surgery (SDC) | payer MEDICARE, OTHER ==
[2020-07-03 10:27] VITALS: BMI 31.0
[2020-07-04] MEDS ORDERED: Lidocaine 1% w/Epinephrine 1:100K 20 ML VIAL ONE (11:33)
[2020-07-04] MEDS ORDERED: Fentanyl 100 MCG/2 ML VIAL ONE ×2 (11:46→13:42)
[2020-07-04] MEDS ORDERED: Dexmedetomidine 200 MCG/2 ML VIAL ONE (11:46)
[2020-07-04] MEDS ORDERED: ePHEDrine 50 MG/ML VIAL ONE (12:18)
[2020-07-04] MEDS ORDERED: Ondansetron PF 4 MG/2 ML Vial ONE (12:18)
[2020-07-04] MEDS ORDERED: Lidocaine 1% PF 5 ML VIAL ONE (12:18)
[2020-07-04] MEDS ORDERED: PROPOFOL 200 MG/20 ML VIAL ONE (12:18)
[2020-07-04] MEDS ORDERED: Dexamethasone 20 MG/5 ML VIAL ONE (12:18)
[2020-07-04] MEDS ORDERED: Succinylcholine 200 MG/10 ml SYRINGE FS ONE (12:18)
[2020-07-04] MEDS ORDERED: Metoclopramide HCl 10 MG/2 ML VIAL ONE (12:18)
[2020-07-04] MEDS ORDERED: Promethazine HCl 25 MG/ML VIAL SLOW IVP PRN (13:15)
[2020-07-04] MEDS ORDERED: Ondansetron HCl/PF 4 MG/2 ML Vial IVP PRN (13:15)
[2020-07-04] MEDS ORDERED: Promethazine HCl 25 MG/ML VIAL IM PRN (13:15)
== END 2020-07-04 15:20 | disposition home or self-care (01) ==
LOC: SDC 09:38
PROVIDERS: ATTEND Specialist
PROC: 0GJR0ZZ Inspection of Parathyroid Gland, Open Approach (ICD-10-PCS; principal; 2020-07-04)
DX: E21.3 Hyperparathyroidism, unspecified (principal); E04.1 Nontoxic single thyroid nodule; G44.209 Tension-type headache, unspecified, not intractable; I10 Essential (primary) hypertension; Z79.899 Other long term (current) drug therapy; Z88.0 Allergy status to penicillin; Z88.2 Allergy status to sulfonamides; Z91.018 Allergy to other foods; Z91.040 Latex allergy status
CPT/HCPCS: 88305; J1100; J2405; J2704; J2765; J3010; J3490

== ENCOUNTER 2021-01-08 09:29 | Outpatient (CLI) | payer MEDICARE, OTHER | END 2021-01-08 09:30 | disposition home or self-care (01) | LOC: BICRAD 09:29 | PROVIDERS: ATTEND Physician Assistant | DX: M51.16 Intervertebral disc disorders with radiculopathy, lumbar region (principal); M47.26 Other spondylosis with radiculopathy, lumbar region | CPT/HCPCS: 72110 ==

== ENCOUNTER 2021-03-18 13:45 | Outpatient (CLI) | payer MEDICARE, OTHER | END 2021-03-18 13:46 | disposition home or self-care (01) | LOC: BICMAMMO 13:45 | PROVIDERS: ATTEND Family Medicine | DX: Z12.31 Encounter for screening mammogram for malignant neoplasm of breast (principal); Z98.82 Breast implant status; Z98.890 Other specified postprocedural states | CPT/HCPCS: 77063; 77067 ==

== ENCOUNTER 2021-05-13 11:58 | Day surgery (SDC) | payer MEDICARE, OTHER ==
[2021-05-13] MEDS ORDERED: Ondansetron PF 4 MG/2 ML Vial IVP PRN (12:15)
[2021-05-13] MEDS ORDERED: Multivitamins, Adult 10 ML, Thiamine HCl 100 MG in Sodium Chloride 0.9% 1,000 ML IV SCH (13:00)
[2021-05-13] MEDS ORDERED: Thiamine HCl 200 MG/2 ML VIAL SLOW IVP SCH (13:00)
[2021-05-13] MEDS ORDERED: Sodium Chloride 0.9% 1,000 ML IV SCH (14:00)
[2021-05-13 14:33] VITALS: BP 148/68; TEMP 98.3
== END 2021-05-13 15:05 | disposition home or self-care (01) ==
LOC: ONC/OP 11:58
PROVIDERS: ATTEND Surgery
DX: E86.0 Dehydration (principal); Z88.0 Allergy status to penicillin; Z88.2 Allergy status to sulfonamides; Z91.018 Allergy to other foods; Z91.040 Latex allergy status
CPT/HCPCS: 96361; 96365; 96366; J3411; J7050

== ENCOUNTER 2021-08-14 08:52 | Outpatient (CLI) | payer MEDICARE, OTHER ==
[2021-08-14] MEDS ORDERED: Iopamidol 370 76% 100 ML VIAL ONE (14:25)
== END 2021-08-14 08:53 | disposition home or self-care (01) ==
LOC: CT 08:52
PROVIDERS: ATTEND Specialist
DX: E21.3 Hyperparathyroidism, unspecified (principal); R22.1 Localized swelling, mass and lump, neck; R22.2 Localized swelling, mass and lump, trunk
CPT/HCPCS: 70492; 82565; Q9967

== ENCOUNTER 2022-02-23 10:25 | Outpatient (CLI) | payer MEDICARE, OTHER | END 2022-02-23 10:26 | disposition home or self-care (01) | LOC: MRI 10:25 | PROVIDERS: ATTEND Family Medicine | DX: M54.2 Cervicalgia (principal); M48.02 Spinal stenosis, cervical region | CPT/HCPCS: 72141 ==

== ENCOUNTER 2022-05-26 20:53 | Inpatient (IN) | payer MEDICARE, OTHER ==
[2022-05-26 21:44] LABS: #Lymphocytes 0.5 thou/uL (1.20-3.40); #Monocytes 0.7 thou/uL (0.11-0.59); #Neutrophils 3.7 thou/uL (1.40-6.50); %Basophils 0.2 % (0.0-1.0); %Eosinophils 0.8 % (0.0-10.0); %Lymphocytes 9.6 % (21.0-51.0); %Monocytes 13.9 % (0.0-10.0); %Neutrophils 75.4 % (42.0-75.0); Hemoglobin 14.6 g/dL (12.0-16.0); Mean Corpuscular HGB CONC 33.1 g/dL (32.0-36.0); Mean Corpuscular Hemoglobin 30.3 pg (27.0-31.0); Mean Corpuscular Volume 91.4 fl (78.0-98.0); Mean Platelet Volume 7.2 fL (7.4-10.4); Platelet Count 194 10x3/uL (130-400); RBC Distribution Width 12.9 % (11.5-14.5); Red Blood Cell (RBC) Count 4.81 mill/uL (4.20-5.40); White Blood Cell (WBC) Count 4.9 10x3/uL (4.8-10.8)
[2022-05-26 22:04] LABS: ALT (SGPT) 30 U/L (8-55); AST (SGOT) 31 U/L (5-34); Albumin 4.2 g/dL (3.4-4.8); Alkaline Phosphatase 83 U/L (40-110); Anion Gap 12 mmol/L (10-20); BUN (Urea Nitrogen) 6 mg/dL (9.8-20.1); Bilirubin, Total 0.7 mg/dL (0.2-1.2); Calc. Creatinine Clearance 0 mL/min (70-130); Calcium 8.9 mg/dL (7.8-10.44); Carbon Dioxide 25 mmol/L (23-31); Chloride 102 mmol/L (98-107); Estimated GFR 67; Glucose 99 mg/dL (80-115); Potassium 3.3 mmol/L (3.5-5.1); Protein, Total 7.2 g/dL (5.8-8.1); Sodium 136 mmol/L (136-145)
[2022-05-26 22:27] LABS: Bacteria/HPF None Seen HPF (None Seen); Bilirubin Negative (Negative); Blood, Urine Negative (Negative); Clarity Clear (Clear); Glucose, Urine (Dipstick) Normal (Negative); Ketone, Urine 10 mg/dL (Negative); Leukocyte Negative Leu/uL (Negative); Nitrite Negative (Negative); Protein, Urine (Dipstick) 30 mg/dL (Neg-Trace); Specific Gravity, Urine 1.025 (1.002-1.036); Squamous Epithelial 0-3 HPF (0-3); Urobilinogen Normal mg/dL (Less than 2); WBC/HPF 0-3 HPF (0-3)
[2022-05-26] MEDS ORDERED: Ketorolac Tromethamine 30 MG/ML VIAL ONE (23:26)
[2022-05-26] MEDS ORDERED: cefTRIAXone\\ROCEPHIN 1 GM VIAL ONE (23:26)
[2022-05-26] MEDS ORDERED: Acetaminophen 500 MG TAB ONE (23:26)
[2022-05-26] MEDS ORDERED: Morphine 4 MG/ML VIAL ONE (23:28)
[2022-05-26 23:42] LABS: SARS-CoV-2 NAA Rapid Test DETECTED (NotDetected)
[2022-05-27] MEDS ORDERED: Azithromycin 500 MG VIAL ONE (02:13)
[2022-05-27] MEDS ORDERED: Acetaminophen 650 MG Suppository PR PRN (03:31)
[2022-05-27] MEDS ORDERED: Benzonatate 100 MG CAP PO PRN (03:31)
[2022-05-27] MEDS ORDERED: Albuterol 200 PUFF (6.7GM INHALER) INH PRN (03:31)
[2022-05-27] MEDS ORDERED: Potassium Chloride 20 MEQ TAB PO SCH (04:00)
[2022-05-27] MEDS ORDERED: Potassium Chloride 20 MEQ TAB ONE (05:15)
[2022-05-27] MEDS ORDERED: Ondansetron PF 4 MG/2 ML Vial ONE (08:17)
[2022-05-27] MEDS ORDERED: Famotidine/PF 20 mg/2ml Vial ONE (08:17)
[2022-05-27] MEDS: Dexamethasone 4 MG TAB PO SCH (08:19)
[2022-05-27] MEDS: Famotidine/PF 20 mg/2ml Vial SLOW IVP SCH ×2 (08:20→20:05)
[2022-05-27] MEDS: Ondansetron PF 4 MG/2 ML Vial IVP PRN ×2 (08:20→20:04)
[2022-05-27] MEDS ORDERED: Acetaminophen 325 MG TAB ONE (09:48)
[2022-05-27 09:59] LABS: Anion Gap 13 mmol/L (10-20); BUN (Urea Nitrogen) 7 mg/dL (9.8-20.1); CRP (Inflammatory) 1.24 mg/dL (= or < 0.5); Calc. Creatinine Clearance 98 mL/min (70-130); Calcium 8.8 mg/dL (7.8-10.44); Carbon Dioxide 29 mmol/L (23-31); Chloride 103 mmol/L (98-107); Estimated GFR 77; Glucose 84 mg/dL (80-115); Magnesium 2.1 mg/dL (1.6-2.6); Potassium 3.7 mmol/L (3.5-5.1); Sodium 141 mmol/L (136-145)
[2022-05-27 10:16] LABS: INR-International Normal Ratio 1.1; Prothrombin Time 14.3 sec (12.0-14.7)
[2022-05-27 10:17] LABS: PTT 36.8 sec (22.9-36.1)
[2022-05-27 10:18] LABS: D-Dimer Test 2.22 *mcg/mL (0.27-0.43)
[2022-05-27] MEDS: Acetaminophen 325 MG TAB PO PRN ×2 (15:20→20:05)
[2022-05-27 15:34] VITALS: BMI 35.5
[2022-05-27] MEDS: guaiFENesin ER 600 MG TAB PO SCH (20:05)
[2022-05-28] MEDS: traMADol HCl 50 MG TAB PO PRN ×2 (00:05→14:12)
[2022-05-28] MEDS ORDERED: cefTRIAXone\\ROCEPHIN 1 GM in Sodium Chloride 0.9% 100 ML IVPB SCH (01:00)
[2022-05-28] MEDS ORDERED: Azithromycin 500 MG in Sodium Chloride 0.9% 250 ML 250 ML IVPB SCH (02:00)
[2022-05-28] MEDS: Acetaminophen 325 MG TAB PO PRN (04:56)
[2022-05-28] MEDS: Famotidine/PF 20 mg/2ml Vial SLOW IVP SCH (08:42)
[2022-05-28] MEDS: guaiFENesin ER 600 MG TAB PO SCH (08:42)
[2022-05-28] MEDS: Dexamethasone 4 MG TAB PO SCH (08:42)
[2022-05-28 16:34] VITALS: BP 154/86
[2022-05-28 17:49] VITALS: TEMP 99
== END 2022-05-28 17:49 | disposition home or self-care (01) | DRG 871 ==
LOC: ERS 20:53 → ERHOLD 23:12 → T4-A 05-27 14:34 → OBSVTOIN 05-28 13:20
PROVIDERS: ADMIT Internal Medicine; ATTEND Internal Medicine
PROC: 8E0ZXY6 Isolation (ICD-10-PCS; principal; 2022-05-28)
PROC: 3E03329 Introduction of Other Anti-infective into Peripheral Vein, Percutaneous Approach (ICD-10-PCS; 2022-05-28)
DX: A41.89 Other specified sepsis (principal); J12.82 Pneumonia due to coronavirus disease 2019; U07.1 COVID-19; J15.9 Unspecified bacterial pneumonia; R65.20 Severe sepsis without septic shock; E87.6 Hypokalemia; F41.9 Anxiety disorder, unspecified; F32.A Depression, unspecified; I10 Essential (primary) hypertension; E78.5 Hyperlipidemia, unspecified; Z88.0 Allergy status to penicillin; Z88.8 Allergy status to other drugs, medicaments and biological substances; Z91.040 Latex allergy status; Z88.2 Allergy status to sulfonamides; Z91.018 Allergy to other foods
CPT/HCPCS: 36415; 70450; 71045; 72125; 72170; 80048; 80053; 81003; 81015; 82728; 83605; 83615; 83735; 83880; 84145; 85025; 85379; 85610; 85730; 86140; 87040; 87086; 87149; 93005; 96372; 96375; 96376; G0378; J0456; J0696; J1650; J1885; J2270; J2405; J3490; J7050; J8540; S0028

== ENCOUNTER 2022-06-04 11:57 | Outpatient (CLI) | payer MEDICARE, OTHER | END 2022-06-04 11:58 | disposition home or self-care (01) | LOC: BICRAD 11:57 | PROVIDERS: ATTEND Family Medicine | DX: J12.82 Pneumonia due to coronavirus disease 2019 (principal) | CPT/HCPCS: 71046 ==

== ENCOUNTER 2022-08-25 11:55 | Outpatient (CLI) | payer MEDICARE, OTHER | END 2022-08-25 11:56 | disposition home or self-care (01) | LOC: BICRAD 11:55 | PROVIDERS: ATTEND Nurse Practitioner Family | DX: M25.552 Pain in left hip (principal); M16.12 Unilateral primary osteoarthritis, left hip ==

== ENCOUNTER 2022-11-17 13:16 | Outpatient (CLI) | payer MEDICARE, OTHER | END 2022-11-17 13:17 | disposition home or self-care (01) | LOC: BICMAMMO 13:16 | PROVIDERS: ATTEND Family Medicine | DX: Z12.31 Encounter for screening mammogram for malignant neoplasm of breast (principal); Z13.820 Encounter for screening for osteoporosis; N95.9 Unspecified menopausal and perimenopausal disorder; M85.852 Other specified disorders of bone density and structure, left thigh; Z98.82 Breast implant status; Z98.890 Other specified postprocedural states | CPT/HCPCS: 77063; 77067; 77080 ==

== ENCOUNTER 2023-06-23 09:12 | Outpatient (CLI) | payer MEDICARE, OTHER | END 2023-06-23 09:13 | disposition home or self-care (01) | LOC: NM 09:12 | PROVIDERS: ATTEND Specialist | DX: Z47.1 Aftercare following joint replacement surgery (principal); Z96.641 Presence of right artificial hip joint | CPT/HCPCS: 78315; A9503 ==

== ENCOUNTER 2024-02-17 12:46 | Day surgery (SDC) | payer MEDICARE, OTHER ==
[2024-02-17] MEDS ORDERED: Ondansetron PF 4 MG/2 ML Vial IVP PRN (13:07)
[2024-02-17] MEDS ORDERED: Sodium Chloride 0.9% 1,000 ML IV SCH (13:15)
[2024-02-17 13:23] VITALS: BP 138/65; TEMP 98
[2024-02-17] MEDS: Multivitamins, Adult 10 ML, Thiamine HCl 100 MG in Sodium Chloride 0.9% 1,000 ML IV SCH (13:53)
== END 2024-02-17 15:50 | disposition home or self-care (01) ==
LOC: ONC/OP 12:46
PROVIDERS: ATTEND Surgery
DX: E86.0 Dehydration (principal); Z91.040 Latex allergy status; Z88.0 Allergy status to penicillin; Z88.2 Allergy status to sulfonamides; Z91.018 Allergy to other foods
CPT/HCPCS: 96361; 96365; J3411; J7030